=== PATIENT | male | born 1980 | race Hispanic/Latino ===

== ENCOUNTER 2021-09-12 18:55 | Emergency (ER) | payer BC ==
[~2021-09-12] VITALS: Ht 182.9 cm; Wt 108.9 kg
[2021-09-12 20:01] VITALS: BP 141/79
== END 2021-09-12 20:17 | disposition home or self-care (01) ==
LOC: EDH 18:55
DX: S03.01XA Dislocation of jaw, right side, initial encounter (principal); X58.XXXA Exposure to other specified factors, initial encounter; Y93.89 Activity, other specified; Y92.89 Other specified places as the place of occurrence of the external cause; Y99.8 Other external cause status
CPT/HCPCS: 21480